=== PATIENT | male | born 1940 | race Caucasian/White ===

== ENCOUNTER 2017-08-13 14:03 | Emergency (ER) | payer MEDICARE, BC ==
--- NOTE | 2017-08-13 15:02 | EDM.PDOC ---
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 He had blood work done which revealed an elevated INR and he was told to hold his Coumadin. The patient says that the hematuria has now stopped. According to the they have had trouble controlling his INR on the Coumadin therapy and when I asked her how long he was slated to be on the Coumadin therapy she is unsure. He has not had a PE in a long time. He has not had a CAT scan for over one year. It is unclear why he is still on Coumadin therapy. Patient was seen a second time last evening in [place] when he was having bleeding from his right ear. At that time the ER doctor did an evaluation and gave him a dose of vitamin K. No further evaluation was done per the . They currently present today because when he woke this morning he had blood coming out of both of his ears and she was concerned because it looked like a lot of blood. He has no complaints of ear pain headache chest pain or shortness of breath no abdominal pain no vomiting or diarrhea and he has no hematuria or blood in the stool no bleeding stools and no nosebleed. He says other within the bleeding from the ears as he feels fine. The tells nursing that he has had a lot of wax buildup in his ears bilaterally over the last few weeks and he has had wax "dripping from his ears" in the past week or 2. He has never seen an ENT but he does wear hearing aids bilaterally I did discuss this patient with his provider at [place] clinic, Renea Hayes. She was surprised that the patient was there and she tells me that his INR has not been not labile but that last evening he was just over 5. She recommended holding his Coumadin and having a recheck this week. When I queried her about why he is still on the Coumadin therapy for PEs she said that she had inherited this patient from another provider who retired and at that time because he had had 2 blood clots in his lungs be kept him on the Coumadin therapy. She was not sure if he had any history of any other clotting disorder protein deficiency. She was planning on writing a letter to the [facility] so that when he went on his visit, that the had scheduled independently, they could address whether or not it to be on any anticoagulation at all and if he did need to be on these medications that potentially there was a better choice. Renea said she was worried because he is a high fall risk. She said she was not involved with the scheduling of the [facility] appointment and that the did independently. These note that the patient and state that he did have a minor fall 3 days ago but no ear trauma. Review of systems: As per history of present illness and below otherwise all systems reviewed and negative. Past medical history: As per history of present illness and as reviewed below otherwise noncontributory. Surgical history: As per history of present illness and as reviewed below otherwise noncontributory. Social history: No reported history of drug or alcohol abuse. Family history: As per history of present illness and as reviewed below otherwise noncontributory. Physical exam: Gen.: Well-developed well-nourished man who is nontoxic and vital signs are noted by me HEENT: Atraumatic, normocephalic, pupils reactive, negative for conjunctival pallor or scleral icterus, mucous membranes moist, throat clear, neck supple, nontender, trachea midline. There is no nasal bleeding noted. Bilateral external canals of ears have brown blood/dark red blood which is thickened but not grossly clotting and there is no overt area of active bleeding seen but the TMs are difficult to visualize due to a lot of debris/cerumen sitting in front of them. Lungs: Clear to auscultation, breath sounds equal bilaterally, chest nontender. Heart: S1S2, regular rate and rhythm no overt murmurs Abdomen: Soft, nondistended, nontender. Negative for masses or hepatosplenomegaly. Negative for costovertebral tenderness. Pelvis: Stable nontender. Genitourinary: Deferred. Rectal: Deferred. Extremities: Atraumatic, negative for cords or calf pain. Neurovascular unremarkable. Neuro: Awake, alert, oriented. Cranial nerves II through XII unremarkable. Cerebellum unremarkable. Motor and sensory unremarkable throughout. Exam nonfocal. Diagnostics: CBC CMP INR UA CT scan of the head Therapeutics: Gentle irrigation of ears bilaterally On reevaluation of the ears bilaterally after irrigation, the nurse tells me that a lot of debris and cerumen was irrigated out. The right TM is visualized and appears to be intact but dull and there is no gross bleeding occurring currently. There is still some debris in the external canal. The left TM is difficult to see due to retained thickened debris in the external canal which is impacted but there is no active bleeding occurring after the irrigation. I can see the upper portion of the TM which appears dulled. In going back to discuss all testing results with the patient and at bedside the patient was having some slight oozing which I directed the not to stuff tissue in his ears as this is just really irritating the area. He doesn 't have any gross bleeding there is a slight trickle which is very minimal on the right. Because he had a fall 3 days ago although he did not have any direct head or ear trauma I will proceed to do a CT scan to be complete. 1655: This case was discussed with Dr. Ryan, the ENT specialist at [facility] in [place]. He said that he would do just symptomatic care and he is not concerned about anything more than what I am describing which is irritation of the external canal. He did not recommend any other diagnostics or care. He said that with the elevated INR there will be persistent oozing. He did recommend Cortisporin otic and management of the INR. I did discuss with the patient and at bedside returning to the ED tomorrow to have a repeat INR performed and because of the impending snowstorm she would like to defer that and do it on Tuesday at [facility]. I will write a prescription for that to be done and for those results to be sent to Renea Hayes so she can better evaluate and manage his Coumadin therapy. We have given him cottonball's and petroleum jelly so that he can place this in his ears at sleep time to keep the area moisturized and atraumatic but strongly advised not to push any of these items deep into his ear canal as this will cause more irritation. CT scan results were discussed with the and patient and he does have a sphenoid sinusitis which will treat with antibiotics Impression: Bilateral external canal bleeding with history of elevated INR, improved, sphenoid sinusitis Definitive disposition and diagnosis as appropriate pending reevaluation and review of above. - Related Data Allergies Allergy/AdvReac Type Severity Reaction Status Date / Time No Known Allergies Allergy Verified 08/13/17 14:20 Home Meds: Home Meds Propranolol [Inderal LA] 60 mg PO DAILY 08/13/17 [History] Topiramate [Topamax] 100 mg PO DAILY 08/13/17 [History] Warfarin [Coumadin] 5 mg PO DAILY 08/13/17 [History] risperiDONE [Risperdal] 1 mg PO DAILY 08/13/17 [History] Past Medical History Cardiovascular History: Reports: Blood Clots/VTE/DVT Psychiatric History: Reports: Schizophrenia - Infectious Disease History Infectious Disease History: Reports: Measles, Mumps - Past Surgical History Male Surgical History: Reports: Prostatectomy, Other (See Below) Other Male Surgeries/Procedures: tx for prostate CA 2006 Social & Family History - Family History Family Medical History: Noncontributory - Tobacco Use Smoking Status *Q: Current Every Day Smoker Years of Tobacco use: 35 Packs/Tins Daily: 1 - Caffeine Use Caffeine Use: Reports: Coffee, Tea Other Caffeine Use: rare use of coffee, daily use of tea - Recreational Drug Use Recreational Drug Use: No ED ROS GENERAL - Review of Systems Review Of Systems: ROS reveals no pertinent complaints other than HPI. ED EXAM, GENERAL - Physical Exam Exam: See Below (see dictation) Course - Vital Signs Last Recorded V/S: Last Vital Signs Temp 37.0 C 08/13/17 14:16 Pulse 76 08/13/17 14:16 Resp 18 08/13/17 14:16 BP 136/93 H 08/13/17 14:16 Pulse Ox 96 08/13/17 14:16 - Orders/Labs/Meds Orders: Active Orders 24 hr Category Date Time Status Communication Order [RC] STAT Care 08/13/17 15:00 Active Head wo Cont [CT] Stat Exams 08/13/17 16:54 Taken Labs: Laboratory Tests 08/13/17 08/13/17 08/13/17 Range/Units 15:10 15:10 15:10 WBC 5.04 (4.0-11.0) K/uL RBC 4.39 L (4.50-5.90) M/uL Hgb 14.3 (13.0-17.0) g/dL Hct 41.7 (38.0-50.0) % MCV 95.0 (80.0-98.0) fL MCH 32.6 H (27.0-32.0) pg MCHC 34.3 (31.0-37.0) g/dL RDW Std Deviation 48.6 (28.0-62.0) fl RDW Coeff of Quan 14 (11.0-15.0) % Plt Count 192 (150-400) K/uL MPV 10.30 (7.40-12.00) fL Add Manual Diff YES Neutrophils % (Manual) 47 L (48.0-80.0) % Band Neutrophils % 1 % Lymphocytes % (Manual) 31 (16.0-40.0) % Monocytes % (Manual) 13 (0.0-15.0) % Eosinophils % (Manual) 7 (0.0-7.0) % Basophils % (Manual) 1 (0.0-1.5) % Nucleated RBC % 0.0 /100WBC Absolute Seg Neuts 2.4 (1.4-5.7) Band Neutrophils # 0.1 Lymphocytes # (Manual) 1.6 (0.6-2.4) Monocytes # (Manual) 0.7 (0.0-0.8) Eosinophils # (Manual) 0.4 (0.0-0.7) Basophils # (Manual) 0.1 (0.0-0.1) Nucleated RBCs # 0 K/uL INR 3.53 Sodium 139 (136-148) mmol/L Potassium 4.0 (3.5-5.1) mmol/L Chloride 108 H (98-107) mmol/L Carbon Dioxide 19.4 L (21.0-32.0) mmol/L BUN 12 (7.0-18.0) mg/dL Creatinine 1.1 (0.8-1.3) mg/dL Est Cr Clr Drug Dosing 46.34 mL/min Estimated GFR (MDRD) > 60.0 ml/min Glucose 83 (74-106) mg/dL Calcium 8.5 (8.5-10.1) mg/dL Total Bilirubin 0.7 (0.2-1.0) mg/dL AST 30 (15-37) U/L ALT 26 (14-63) U/L Alkaline Phosphatase 64 (46-116) U/L Total Protein 6.7 (6.4-8.2) g/dL Albumin 3.1 L (3.4-5.0) g/dL Globulin 3.6 H (2.0-3.5) g/dL Albumin/Globulin Ratio 0.9 L (1.3-2.8) Urine Color Urine Appearance Urine pH (5.0-8.0) Ur Specific Traphill (1.001-1.035) Urine Protein (NEGATIVE) mg/dL Urine Glucose (UA) (NEGATIVE) mg/dL Urine Ketones (NEGATIVE) mg/dL Urine Occult Blood (NEGATIVE) Urine Nitrite (NEGATIVE) Urine Bilirubin (NEGATIVE) Urine Urobilinogen (<2.0) EU/dL Ur Leukocyte Esterase (NEGATIVE) Urine RBC (0-2/HPF) Urine WBC (0-5/HPF) Ur Epithelial Cells (NONE-FEW) Urine Bacteria (NEGATIVE) 08/13/17 Range/Units 15:55 WBC (4.0-11.0) K/uL RBC (4.50-5.90) M/uL Hgb (13.0-17.0) g/dL Hct (38.0-50.0) % MCV (80.0-98.0) fL MCH (27.0-32.0) pg MCHC (31.0-37.0) g/dL RDW Std Deviation (28.0-62.0) fl RDW Coeff of Quan (11.0-15.0) % Plt Count (150-400) K/uL MPV (7.40-12.00) fL Add Manual Diff Neutrophils % (Manual) (48.0-80.0) % Band Neutrophils % % Lymphocytes % (Manual) (16.0-40.0) % Monocytes % (Manual) (0.0-15.0) % Eosinophils % (Manual) (0.0-7.0) % Basophils % (Manual) (0.0-1.5) % Nucleated RBC % /100WBC Absolute Seg Neuts (1.4-5.7) Band Neutrophils # Lymphocytes # (Manual) (0.6-2.4) Monocytes # (Manual) (0.0-0.8) Eosinophils # (Manual) (0.0-0.7) Basophils # (Manual) (0.0-0.1) Nucleated RBCs # K/uL INR Sodium (136-148) mmol/L Potassium (3.5-5.1) mmol/L Chloride (98-107) mmol/L Carbon Dioxide (21.0-32.0) mmol/L BUN (7.0-18.0) mg/dL Creatinine (0.8-1.3) mg/dL Est Cr Clr Drug Dosing mL/min Estimated GFR (MDRD) ml/min Glucose (74-106) mg/dL Calcium (8.5-10.1) mg/dL Total Bilirubin (0.2-1.0) mg/dL AST (15-37) U/L ALT (14-63) U/L Alkaline Phosphatase (46-116) U/L Total Protein (6.4-8.2) g/dL Albumin (3.4-5.0) g/dL Globulin (2.0-3.5) g/dL Albumin/Globulin Ratio (1.3-2.8) Urine Color YELLOW Urine Appearance CLEAR Urine pH 6.0 (5.0-8.0) Ur Specific Traphill 1.020 (1.001-1.035) Urine Protein NEGATIVE (NEGATIVE) mg/dL Urine Glucose (UA) NEGATIVE (NEGATIVE) mg/dL Urine Ketones NEGATIVE (NEGATIVE) mg/dL Urine Occult Blood LARGE H (NEGATIVE) Urine Nitrite NEGATIVE (NEGATIVE) Urine Bilirubin NEGATIVE (NEGATIVE) Urine Urobilinogen 1.0 (<2.0) EU/dL Ur Leukocyte Esterase NEGATIVE (NEGATIVE) Urine RBC 12-15 (0-2/HPF) Urine WBC 0-2 (0-5/HPF) Ur Epithelial Cells RARE (NONE-FEW) Urine Bacteria RARE (NEGATIVE) Departure - Departure Time of Disposition: 18:41 Disposition: Home, Self-Care 01 Condition: Good Clinical Impression: Bleeding from both ears, Elevated INR Sphenoid sinusitis Qualifiers: Chronicity: acute Recurrence: not specified as recurrent Qualified Code(s): J01.30 - Acute sphenoidal sinusitis, unspecified - Discharge Information Referrals: Renea Hayes NP [Primary Care Provider] - Forms: ED Department Discharge Additional Instructions: The following information is given to patients seen in the emergency department who are being discharged to home. This information is to outline your options for follow-up care. We provide all patients seen in our emergency department with a follow-up referral. The need for follow-up, as well as the timing and circumstances, are variable depending upon the specifics of your emergency department visit. If you don't have a primary care physician on staff, we will provide you with a referral. We always advise you to contact your personal physician following an emergency department visit to inform them of the circumstance of the visit and for follow-up with them and/or the need for any referrals to a consulting specialist. The emergency department will also refer you to a specialist when appropriate. This referral assures that you have the opportunity for followup care with a specialist. All of these measure are taken in an effort to provide you with optimal care, which includes your followup. Under all circumstances we always encourage you to contact your private physician who remains a resource for coordinating your care. When calling for followup care, please make the office aware that this follow-up is from your recent emergency room visit. If for any reason you are refused follow-up, please contact the [facility] emergency department at and ask to speak to the emergency department charge nurse. [facility] Primary care- Internal Medicine and Family [facility] [address] [place] [id number] [facility] Specialty Care - ENT [address] [place] [id number] Please have your INR repeated on Tuesday as we discussed and call and schedule a follow-up appointment with Renea Hayes at [facility] or one of our providers on Tuesday. Please use Cortisporin otic in the ears as directed and utilize the petroleum jelly and the cotton balls at sleep times as we discussed. Any bleeding from the year please just dab the area. Take antibiotics as directed for the sinusitis. Return to ER as needed and as discussed. Expect some oozing from the ears throughout the evening and into tomorrow but please do not manipulate the area. - My Orders Last 24 Hours: My Active Orders 08/13/17 15:00 Communication Order [RC] STAT 08/13/17 16:54 Head wo Cont [CT] Stat - Assessment/Plan Last 24 Hours: My Active Orders 08/13/17 15:00 Communication Order [RC] STAT 08/13/17 16:54 Head wo Cont [CT] Stat
[2017-08-13 15:44] LABS: CHLORIDE,CL 108 mmol/L (98-107); SODIUM,NA 139 mmol/L (136-148)
--- NOTE | 2017-08-15 06:18 | CT ---
EXAM DATE: 08/13/17 PATIENT'S AGE: 76 Patient: HALLEY HANNAH Facility: [place], [place] Site . Site : [id number] Study: CT Head [id number] 6:10:37 PM Ordering Physician: Mega Garcia Final Report: INDICATION: Trauma. TECHNIQUE: Noncontrast CT of the brain was performed with images acquired from skull base to vertex. COMPARISON: None available. FINDINGS: There is no acute intracranial hemorrhage. There is generalized cerebral atrophy with ex vacuo dilatation of ventricles. There is atherosclerotic calcification of the carotid siphons. No mass effect or midline shift is present. The barakat-white matter differentiation is normal. The visualized portions of the orbits are normal. The visualized portions of the mastoids are normal. There is an air-fluid level in the sphenoid sinus compatible with acute sinusitis. No fractures are identified. IMPRESSION: 1. No acute intracranial abnormality. 2. Air-fluid level in the sphenoid sinus compatible with acute sinusitis. Please note that all CT scans at this facility use dose modulation, iterative reconstruction, and/or weight-based dosing when appropriate to reduce radiation dose to as low as reasonably achievable. Dictated by Bayron Lofton MD @ Aug 13 2017 6:26PM (Electronic Signature) Report Signed by Proxy. MTDD
== END 2017-08-13 18:55 | disposition home or self-care (01) ==
LOC: MW.ED 14:03
DX: J01.30 Acute sphenoidal sinusitis, unspecified (principal); H92.23 Otorrhagia, bilateral; R79.1 Abnormal coagulation profile; F17.210 Nicotine dependence, cigarettes, uncomplicated; F20.9 Schizophrenia, unspecified; Z79.01 Long term (current) use of anticoagulants; Z79.899 Other long term (current) drug therapy
CPT/HCPCS: 36415; 70450; 70450-26; 80053; 81001; 85025; 85610; 99283; 99284-25